=== PATIENT | male | born 1960 | race Caucasian/White ===

== ENCOUNTER → 2024-04-10 13:30 | Outpatient (REF) | payer OTHER, SELFPAY | LOC: RCS 13:30 | PROVIDERS: ATTENDING PHYSICIAN Internal Medicine; FAMILY PHYSICIAN Physician Assistant Medical | DX: I10 Essential (primary) hypertension (principal); I44.4 Left anterior fascicular block; I25.10 Atherosclerotic heart disease of native coronary artery without angina pectoris; R06.09 Other forms of dyspnea | CPT/HCPCS: 93306; Q9950 ==

== ENCOUNTER → 2024-04-24 11:33 | Outpatient (REF) | payer OTHER, SELFPAY | LOC: HWRCS 11:33 | PROVIDERS: ATTENDING PHYSICIAN Internal Medicine; FAMILY PHYSICIAN Physician Assistant Medical | DX: I10 Essential (primary) hypertension (principal); I44.4 Left anterior fascicular block; I25.10 Atherosclerotic heart disease of native coronary artery without angina pectoris; R06.09 Other forms of dyspnea | CPT/HCPCS: 78452; 93017; A9500 ==